=== PATIENT | male | born 1985 | race Caucasian/White ===

== ENCOUNTER 2023-11-11 18:43 | Inpatient (IN) | payer OTHER ==
--- NOTE | 2023-11-11 19:30 | ED ---
General Adult HPI - General Chief complaint: Seizure Stated complaint: Seizure Time Seen by Provider: 11/11/23 19:27 Source: patient Mode of arrival: ambulatory Limitations: no limitations - History of Present Illness Initial comments: 38 year old male sent from [place] secondary to seizure. Patient reports he was drinking a pint to a fifth of liquor on a daily basis. Last drink was approximately a week ago. Has been at [place] for the past week. Notes they recently stopped his medications and was sent here secondary to having two seizures. Reports that he was outside and started to feel like he was going to have a seizure and next thing he knows he fell backwards hitting his head on the back of the concrete. Unsure if there is LOC at this time. Patient been stood up and reportedly had another seizure however this time was guided down to the ground. Currently denies headache however notes some pain of his right shoulder and left hand. Does also note some anxiety and tremors as well. No other complaints at this time. - Related Data Allergies Allergy/AdvReac Type Severity Reaction Status Date / Time No Known Allergies Allergy Verified 11/11/23 19:08 Review of Systems ROS Statement: Those systems with pertinent positive or pertinent negative responses have been documented in the HPI. ROS Other: All systems not noted in ROS Statement are negative. Past Medical History Additional Past Surgical History / Comment(s): facial none surgery, PRK, Past Psychological History: Anxiety, Depression, PTSD Smoking Status: Current every day smoker, Vaper Past Alcohol Use History: Abuse, Daily, Heavy Past Drug Use History: None Reported General Exam - General Exam Comments Initial Comments: Visual Physical Exam Vital signs reviewed General: Well-appearing, nontoxic, no acute distress. Head: Normocephalic, atraumatic Eyes: PERRLA, EOMI ENT: Airway patent Chest: Nonlabored breathing Skin: No visual rash, normal skin tone Neuro: Alert and oriented 3 Musculoskeletal: No gross abnormalities Limitations: no limitations General appearance: alert, in no apparent distress Head exam: Present: other (No dang signs or raccoon's eyes.) Eye exam: Present: PERRL, EOMI ENT exam: Present: other (Some bite ribeiro on the tongue.) Neck exam: Present: normal inspection Respiratory exam: Present: normal lung sounds bilaterally Cardiovascular Exam: Present: regular rate GI/Abdominal exam: Present: soft Extremities exam: Present: other (Full active range of motion of the right shoulder. Strength and sensation intact of the distal bilateral upper extrem ities. Radial pulses intact. Hands are tremulous.) Neurological exam: Present: alert, oriented X3 Skin exam: Present: warm, dry Course Vital Signs 11/11/23 19:03 Temperature 98.6 F Pulse Rate 105 H Respiratory 18 Rate Blood Pressure 150/83 O2 Sat by Pulse 97 Oximetry Medical Decision Making - Medical Decision Making Was pt. sent in by a medical professional or institution (, PA, MANAGER WELLNESS, urgent care, hospital, or detention...) When possible be specific @ -No Did you speak to anyone other than the patient for history (EMS, parent, family, police, friend...)? What history was obtained from this source @ -No Did you review nursing and triage notes (agree or disagree)? Why? @ -I reviewed and agree with nursing and triage notes Were old charts reviewed (outside hosp., previous admission, EMS record, old EKG, old radiological studies, urgent care reports/EKG's, detention records)? Report findings @ -No old charts were reviewed Differential Diagnosis (chest pain, altered mental status, abdominal pain women, abdominal pain men, vaginal bleeding, weakness, fever, dyspnea, syncope, headache, dizziness, GI bleed, back pain, seizure, CVA, palpatations, mental health, musculoskeletal)? @ -Differential Seizure: Recurrent seizure disorder, febrile seizure, alcohol withdrawal, stimulants, meningitis, encephalitis, intercranial hemorrhage, intracranial tumor, stroke, eclampsia, thyrotoxicosis, hypocalcemia, hyponatremia, hypernatremia, hypomagnesemia, psychogenic, this is not meant to be an all-inclusive list. EKG interpreted by me (3pts min.). @ -EKG interpreted me which shows a acute ST or T wave changes 5 bpm. WY 198, QRS 83, QT/QTc 330/372. X-rays interpreted by me (1pt min.). @ -None done CT interpreted by me (1pt min.). @ -CT brain interpreted me which revealed no evidence of acute process. U/S interpreted by me (1pt. min.). @ -None done What testing was considered but not performed or refused? (CT, X-rays, U/S, labs)? Why? @ -None What meds were considered but not given or refused? Why? @ -None Did you discuss the management of the patient with other professionals (professionals i.e. , PA, MANAGER WELLNESS, lab, RT, psych nurse, psychiatric social worker supervisor, tram inspector, teacher, driver license reviewing officer, human services case manager)? Give summary @ -No Was smoking cessation discussed for >3mins.? @ -No Was critical care preformed (if so, how long)? @ -No Were there social determinants of health that impacted care today? How? (Homelessness, low income, unemployed, alcoholism, drug addiction, transportation, low edu. Level, literacy, decrease access to med. care, shelter, rehab)? @ -No Was there de-escalation of care discussed even if they declined (Discuss DNR or withdrawal of care, Hospice)? DNR status @ -No What co-morbidities impacted this encounter? (DM, HTN, Smoking, COPD, CAD, Cancer, CVA, ARF, Chemo, Hep., AIDS, mental health diagnosis, sleep apnea, morbid obesity)? @ -None Was patient admitted / discharged? Hospital course, mention meds given and route, prescriptions, significant lab abnormalities, going to OR and other pertinent info. @ -Admission I saw the patient initially as a quick note while in triage. 38-year-old male presenting from [place] secondary to seizure. Has been there for the last 7 days and had his medications discontinued today. Reportedly today while standing outside had a seizure from standing and hit the back of his head on the concrete. Following, stood up and reportedly had anoth er seizure soon after where he was guided to the ground which is why patient was brought here for further evaluation. Patient currently complains of some right shoulder pain and left wrist pain following the seizure however denies headache at this time. On exam full active range of motion and patient declined imaging studies. Laboratory studies reviewed. CBC unremarkable. Chemistry panel shows some transaminitis with elevated AST at 100, ALT at 224. Urine is pending at this time. Patient will be admitted secondary to seizure-like activity. Patient has had no further seizures while here in the ED. Undiagnosed new problem with uncertain prognosis? @ -No Drug Therapy requiring intensive monitoring for toxicity (Heparin, Nitro, Insulin, Cardizem)? @ -No Were any procedures done? @ -No Diagnosis/symptom? @ -Alcohol withdrawal, seizure-like activity Acute, or Chronic, or Acute on Chronic? @ -Acute Uncomplicated (without systemic symptoms) or Complicated (systemic symptoms)? @ -Complicated Side effects of treatment? @ -No Exacerbation, Progression, or Severe Exacerbation? @ -No Poses a threat to life or bodily function? How? (Chest pain, [place], [place], pneumonia, PE, COPD, DKA, ARF, appy, cholecystitis, CVA, Diverticulitis, Homicidal, Suicidal, threat to staff... and all critical care pts) @ -Possibly however at this time unlikely - Lab Data Result diagrams: 11/11/23 20:20 11/11/23 20:20 Lab Results 11/11/23 11/11/23 11/11/23 Range/Units 20:20 20:20 20:20 WBC 10.4 (3.8-10.6) k/uL RBC 4.42 (4.30-5.90) m/uL Hgb 14.5 (13.0-17.5) gm/dL Hct 43.2 (39.0-53.0) % MCV 97.5 (80.0-100.0) fL MCH 32.7 (25.0-35.0) pg MCHC 33.5 (31.0-37.0) g/dL RDW 13.0 (11.5-15.5) % Plt Count 258 (150-450) k/uL MPV 7.4 Neutrophils % 79 % Lymphocytes % 12 % Monocytes % 6 % Eosinophils % 1 % Basophils % 1 % Neutrophils # 8.2 H (1.3-7.7) k/uL Lymphocytes # 1.2 (1.0-4.8) k/uL Monocytes # 0.7 (0-1.0) k/uL Eosinophils # 0.1 (0-0.7) k/uL Basophils # 0.1 (0-0.2) k/uL Sodium 137 (137-145) mmol/L Potassium 4.0 (3.5-5.1) mmol/L Chloride 106 (98-107) mmol/L Carbon Dioxide 25 (22-30) mmol/L Anion Gap 6 mmol/L BUN 12 (9-20) mg/dL Creatinine 0.80 (0.66-1.25) mg/dL Est GFR (CKD-EPI)AfAm >90 (>60 ml/min/1.73 sqM) Est GFR (CKD-EPI)NonAf >90 (>60 ml/min/1.73 sqM) Glucose 98 (74-99) mg/dL Plasma Lactic Acid Jose M 1.6 (0.7-2.0) mmol/L Calcium 9.2 (8.4-10.2) mg/dL Total Bilirubin 0.7 (0.2-1.3) mg/dL AST 100 H (17-59) U/L ALT 224 H (4-49) U/L Alkaline Phosphatase 73 (38-126) U/L Total Protein 6.7 (6.3-8.2) g/dL Albumin 4.3 (3.5-5.0) g/dL Serum Alcohol <10 mg/dL Disposition Clinical Impression: Alcohol withdrawal, Observed seizure-like activity Disposition: ADMITTED IP TO THIS [facility] Condition: Good Referrals: Mayra Desai MD [STAFF PHYSICIAN] - 1-2 days Time of Disposition: 22:15
[2023-11-11] MEDS ORDERED: LORazepam 2 MG/ML INJ IV PRN ×3 (19:54)
[2023-11-11] MEDS: THIAMINE 100 MG/ML 2 ML VIAL IM STA (20:44)
[2023-11-11 20:57] LABS: Basophils # (A) 0.1 k/uL (0-0.2); Basophils % (A) 1 %; Eosinophils # (A) 0.1 k/uL (0-0.7); Eosinophils % (A) 1 %; HCT 43.2 % (39.0-53.0); HGB 14.5 gm/dL (13.0-17.5); Lymphocytes # (A) 1.2 k/uL (1.0-4.8); Lymphocytes % (A) 12 %; MCH 32.7 pg (25.0-35.0); MCHC 33.5 g/dL (31.0-37.0); MCV 97.5 fL (80.0-100.0); Mean Platelet Volume 7.4; Monocytes # (A) 0.7 k/uL (0-1.0); Monocytes % (A) 6 %; Neutrophils # (A) 8.2 k/uL (1.3-7.7); Neutrophils % (A) 79 %; Platelet Count 258 k/uL (150-450); RBC 4.42 m/uL (4.30-5.90); WBC 10.4 k/uL (3.8-10.6)
--- NOTE | 2023-11-11 21:51 | CT ---
EXAMINATION TYPE: CT brain wo con CT DLP: 1091.3 mGycm, Automated exposure control for dose reduction was used. DATE OF EXAM: 11/11/2023 9:30 PM COMPARISON: None. CLINICAL INDICATION:Male, 38 years old with history of seizure head injury, patient arrives from [facility] after a couple seizures, ETOH withdrawal. right arm, left hand, bilateral calf pain from fal l. neck soreness/aching in bilateral shoulders. TECHNIQUE: Brain: Axial CT images of the brain were obtained with coronal and sagittal reformats created and rev iewed. Contrast used: None. Oral contrast used: None. FINDINGS: Extra-axial spaces: No abnormal extra-axial fluid collections. Ventricular system: Ventricles appear dilated in proportion to the degree of cerebral atrophy. Cerebral parenchyma: No increased attenuation to suggest acute intraparenchymal hemorrhage. The gra y-white matter interface appears maintained. Mild generalized brain atrophy, seems excessive for age . White matter unremarkable by CT. Cerebellum: No acute abnormality. Mass effect: No evidence of mass effect or midline shift. Intracranial vasculature: Unremarkable Soft tissues: No acute or concerning abnormality. Visualized orbits: Orbital contents appear grossly intact. Calvarium/osseous structures: No evidence of calvarial fracture. Bowing deformity of the right medial orbital wall inward consistent with a remote injury. Mild nasal septal deviation. Paranasal sinuses and mastoid air cells: Clear. MRI is more sensitive for detecting acute processes such as infarct, and may be considered if clinica lly warranted. IMPRESSION: No acute intracranial CT abnormality.
[2023-11-11 21:52] LABS: ALT 224 U/L (4-49); AST 100 U/L (17-59); African American GFR (CKD) >90 (>60 ml/min/1.73 sqM); Albumin 4.3 g/dL (3.5-5.0); Alcohol <10 mg/dL; Alkaline Phosphatase 73 U/L (38-126); Anion Gap 6 mmol/L; Blood Urea Nitrogen 12 mg/dL (9-20); Calcium 9.2 mg/dL (8.4-10.2); Carbon Dioxide 25 mmol/L (22-30); Chloride 106 mmol/L (98-107); Glucose 98 mg/dL (74-99); Non-African American GFR(CKD) >90 (>60 ml/min/1.73 sqM); Sodium 137 mmol/L (137-145); Total Bilirubin 0.7 mg/dL (0.2-1.3); Total Protein 6.7 g/dL (6.3-8.2)
[2023-11-11] MEDS: ACETAMINOPHEN TAB 500 MG TAB PO STA (21:57)
[2023-11-11] MEDS: LORazepam 2 MG/ML INJ IV STA (21:58)
[2023-11-11] MEDS ORDERED: NALOXONE 0.4 MG/ML 1 ML VIAL IV PRN (22:51)
[2023-11-11] MEDS: SODIUM CHLORIDE 0.9% 1,000 ML IV SCH (23:35)
[2023-11-12 00:25] LABS: Appearance,Urine Clear (Clear); Bilirubin,Urine Negative (Negative); Blood,Urine Negative (Negative); Color,Urine Colorless; Glucose,Urine (UA) Negative (Negative); Ketones,Urine Negative (Negative); Leukocyte Esterase,Urine Trace (Negative); Nitrite,Urine Negative (Negative); PH, Urine 6.5 (5.0-8.0); Protein,Urine Negative (Negative); RBC,Urine 1 /hpf (0-5); Specific Gravity,Urine 1.011 (1.001-1.035); Squamous Epithelial Cell,Urine <1 /hpf (0-4); Urobilinogen,Urine <2.0 mg/dL (<2.0); WBC,Urine 7 /hpf (0-5)
[2023-11-12 00:39] LABS: Amphetamine Screen,Urine Not Detected (NotDetected); Barbiturate Screen,Urine Not Detected (NotDetected); Benzodiazepines Screen,Urine Detected (NotDetected); Cocaine Screen,Urine Not Detected (NotDetected); Methadone Screen, Urine Not Detected (NotDetected); Opiate Screen,Urine Not Detected (NotDetected); Oxycodone Screen, Urine Not Detected (NotDetected); Phencyclidine Screen,Urine Not Detected (NotDetected); Tricyclic Antidepressant,Urine Not Detected (NotDetected); Urn Cannabinoid Scrn Not Detected (NotDetected)
[2023-11-12] MEDS: ACETAMINOPHEN TAB 325 MG TAB PO PRN (01:02)
--- NOTE | 2023-11-12 07:41 | P.HPIM ---
History of Present Illness H&P Date: 11/12/23 HISTORY OF PRESENT ILLNESS: 38-year-old male with chronic history of alcoholism who drinks over a pint of alcohol every day was not [facility] for alcoholism, his last drink was over a week ago patient apparently had stopped his medication he was sent to the emergency department at [facility] because of 2 seizure activity had happen as tonic-clonic he was outside and start to feel that he is going down he fell backward hit his head on the back of the concrete this was kind of weakness also had another 1 where he felt he is having seizure and help her get him down to the floor he had an episode lasted for few minutes he developed to have significant pain in the right shoulder and hand he is quite a bit anxious had not have any history of seizure in the past and the only medical history had his alcoholism along with anxiety depression and PTSD. Patient was seen and evaluated In the emergency department laboratory value showed quite bit abnormal liver function test drug screen shows benzodiazepines only alcohol level less than 10 CBC and chemistry were normal. The patient had some lorazepam along with thiamine IV fluid hydration will be kept on DT protocol and will be admitted to the hospital see neurology initiate antiseizure medication at this point EEG will be done and hopefully patient be able to return to [facility] as soon as he is cleared with neurology. Patient apparently was from [facility] never had any primary care in town, and is taking BuSpar and Wellbutrin at home for depression and anxiety. Continue to have slight right shoulder pain which will be x-ray and probably will use ibuprofen or Motrin to help with shoulder unless there is any abnormality or fracture. REVIEW OF SYSTEMS: CONSTITUTIONAL: Well-developed no acute respiratory distress. Quite a bit anxious. EYES: No icterus sclerae, no conjunctivitis. EARS, NOSE, MOUTH, THROAT, and FACE: No sore throat, lymphadenopathy, carotid bruits or deformity. RESPIRATORY: No SOB cough or wheezes. CARDIOVASCULAR: No CP, Palpitation, PND, Orthopnea, or angina. GASTROINTESTINAL: No Abd pain, Nausea or vomiting, no Diarrhea or constipation, No GI Bleed, no distention or masses. GENITOURINARY: Negative for Hematuria or UTI, no kidney stones. INTEGUMENT/BREAST: Negative for any muscular injury with mild osteoarthritis.. HEMATOLOGIC/LYMPHATIC: Negative for bleed or purpura. MUSCULOSKELTAL: Slight shoulder and left hand pain. NEURLOGICAL: Quite a bit anxious with mild tremor had loss of consciousness with seizure activity no blurred vision. BEHAVIORAL/PSYCH: Anxiety mild tremor. ENDOCRINE: Negative. PHYSICAL EXAMINATION: General Appearance: Alert, cooperative, no distress, appears stated age. Neck HEENT: Supple, no lymphadenopathy, no thyroid enlargement, no carotid bruits. Lungs: Clear to auscultation without crackles or wheezes no rhonchi, no deformity. Chest Wall: Chest wall normal expansion with deep inspiration no tenderness and no deformity was found on exam, no costochondral pain or discomfort. Heart: Regular rate and rhythm, S1, S2 normal, no murmur, rub or gallop. Back: Symmetric, no curvature, ROM normal, no CVA tenderness. Abdomen: Soft, non-tender, bowel sounds active all four quadrants, no masses, no organomegaly. Extremities: Extremities normal, atraumatic, no cyanosis or edema. Pulses: 2+ and symmetric. Skin: Skin color, texture, tugor normal, no rashes or lesions. Neurologic: Alert oriented x3 cranial nerves II through XII intact, no motor deficit, no abnormal balance or gait. ASSESSMENT AND PLAN: _Seizure activity: Most likely withdrawal from alcohol without the proper management for withdrawal. Lorazepam at this point patient be seen neurology EEG to be done not quite sure whether he needs any antiseizure medication or not. _History of alcoholism: Patient will be on lorazepam every 2 hours as needed prophylaxis for delirium trauma and alcohol withdrawal, continue thiamine and folic acid continue hydration. _Right shoulder pain post fall from his seizure, x-ray of the shoulder to be done will use ibuprofen 400 mg up to 3 times a day as needed for _Severe abnormal liver function test: Mostly alcohol-related will watch his liver function test in the next few weeks. _Severe depression and PTSD he is not on any medication at home currently we will try the following methods to drugs in the morning to see if he was on any prescribed medication to be restarted patient will benefit probably from SSRI or SNRI. _Nicotine dependency: Patient is heavy smoker will continue on 40 mg of nicotine patch daily. _GI prophylaxis: Patient be on Pepcid 20 mg daily. _DVT prophylaxis: Knee-high ALFRED hose and early mobilization. CODE STATUS: Full code. Admit patient to observation status for 1-2 night stays. Past Medical History Additional Past Medical History / Comment(s): ETOH FIFTH TO PINT DAILY ,BACK MOLAR REMOVED History of Any Multi-Drug Resistant Organisms: None Reported Additional Past Surgical History / Comment(s): facial nose surgery, PRK (eye surgery), Past Psychological History: Anxiety, Depression, PTSD Smoking Status: Current every day smoker, Vaper Past Alcohol Use History: Abuse, Daily, Heavy Past Drug Use History: None Reported Medications and Allergies Home Medications Medication Instructions Recorded Confirmed Type Acetaminophen [Tylenol] 650 mg PO Q4H PRN 11/12/23 11/12/23 History Calcium/Magnesium/Zinc/Vitamin D 1 tab PO TID PRN 11/12/23 11/12/23 History Chlorpheniramine Maleate 4 mg PO Q4H PRN 11/12/23 11/12/23 History [Chlor-Trimeton] Ibuprofen [Motrin Ib] 600 mg PO Q6H PRN 11/12/23 11/12/23 History Loperamide HCl [Imodium A-D] 4 mg PO QID PRN 11/12/23 11/12/23 History Mag Hydrox/Aluminum Hyd/Simeth 30 ml PO Q4H PRN 11/12/23 11/12/23 History [Mylanta Maximum Strength Liq] Melatonin 10 mg PO HS 11/12/23 11/12/23 History Multivitamins, Thera [Multivitamin 1 tab PO DAILY 11/12/23 11/12/23 History (formulary)] Nicotine 21Mg/24Hr Patch [Habitrol] 1 patch TRANSDERM DAILY 11/12/23 11/12/23 History Ofloxacin [Ofloxacin Ophth Soln] 1 drop BOTH EYES QID 11/12/23 11/12/23 History Thiamine [Vitamin B-1] 100 mg PO DAILY 11/12/23 11/12/23 History buPROPion HCL [buPROPion HCL Xl] 150 mg PO DAILY 11/12/23 11/12/23 History busPIRone HCL 5 mg PO BID 11/12/23 11/12/23 History cloNIDine HCL [Catapres] 0.1 - 0.3 mg PO Q4H PRN 11/12/23 11/12/23 History ondansetron HCL [Ondansetron HCl] 8 mg PO Q6H PRN 11/12/23 11/12/23 History Allergies Allergy/AdvReac Type Severity Reaction Status Date / Time No Known Allergies Allergy Verified 11/12/23 07:20 Physical Exam Vitals: Vital Signs Temp Pulse Pulse Resp BP BP Pulse Ox 11/12/23 02:00 97.7 F 83 16 149/90 97 11/12/23 01:14 18 11/11/23 19:03 98.6 F 105 H 18 150/83 97 Intake and Output 11/11/23 11/11/23 11/12/23 14:59 22:59 06:59 Other: Weight 74.843 kg 74.843 kg Results CBC & Chem 7: 11/11/23 20:20 11/11/23 20:20 Labs: Abnormal Lab Results - Last 24 Hours (Table) 11/11/23 11/11/23 11/11/23 Range/Units 20:20 20:20 23:37 Neutrophils # 8.2 H (1.3-7.7) k/uL AST 100 H (17-59) U/L ALT 224 H (4-49) U/L Ur Leukocyte Esterase Trace H (Negative) Urine WBC 7 H (0-5) /hpf U Benzodiazepines Scrn Detected H (NotDetected) Thrombosis Risk Factor Assmnt - Choose All That Apply Any of the Below Risk Factors Present?: Yes Each Factor Represents 1 point: Obesity (BMI >25) Other Risk Factors: No Other congenital or acquired thrombophilia - If yes, enter type in comment: No Thrombosis Risk Factor Assessment Total Risk Factor Score: 1 Thrombosis Risk Factor Assessment Level: Low Risk
[2023-11-12] MEDS: KETOROLAC 15 MG/ML 1 ML VIAL IVP PRN (08:20)
[2023-11-12] MEDS: busPIRone HCl 5 MG TAB PO SCH (08:20)
[2023-11-12] MEDS: NICOTINE 14MG/24HR PATCH TRANSDERM SCH (08:21)
[2023-11-12] MEDS: THIAMINE 100 MG TAB PO SCH (08:21)
[2023-11-12] MEDS: FAMOTIDINE 20 MG TAB PO SCH (08:21)
--- NOTE | 2023-11-12 08:38 | XR ---
EXAMINATION TYPE: XR shoulder complete RT DATE OF EXAM: 11/12/2023 COMPARISON: NONE HISTORY: Pain TECHNIQUE: Three views are submitted. FINDINGS: The osseous structures are intact. There is no acute fracture or dislocation. A calcification in th e soft tissue of the right axilla. Possibly vascular. Mild AC joint arthropathy. IMPRESSION: 1. Mild AC joint arthropathy. 2. Nonspecific calcification in the right axilla most likely vascular but could be correlated with ul trasound.
[2023-11-12] MEDS: buPROPion 75 MG TAB PO SCH (10:05)
[2023-11-12] MEDS: IBUPROFEN 600 MG TAB PO PRN (17:28)
--- NOTE | 2023-11-12 17:30 | P.CNNES ---
History of Present Illness Consult date: 11/12/23 Requesting physician: Taz Chaney Reason for Consult: seizure History of Present Illness: This is a 38-year-old gentleman with history of significant alcohol use who presents because of seizure-like activity at [facility]. Patient stated yesterday while at [facility] she was sitting and all of a sudden he had a sensation of traveling up his feet all the way to the shoulder that he felt his jaw twisting that has seizure-like activity. Unsure duration area and he stated when he got up he was told he had another seizure-like activity. He's having right shoulder pain. He states he is at [facility] because of his significant alcohol use. He drinks about a pint to assess and a day but he does not drink daily but most of the week. He also drapes. His last drink was about a week ago. At at the rehab center he was given Ativan then he was stopped Ativan on Friday. He stated that he was very tremulous at the rehab center. He denies any history of seizures in the past or any family history of seizures. He feels he is doing better. Regarding his history he stated it was normal. of note patient stated that he has a anxiety, depression, PTSD and the posterior on the Wellbutrin and Buspirone which he felt made him feel somewhat off. Some of the workup during his hospital visit consisted of: sodium is 137, calcium is 9.2, AST is 100 and ALT of 224. Plasma-lactic acid vein is 1.6. UDS: is positive for benzos. Otherwise the rest is on detected. Serum alcohol was less than 10 CT of the head is reported as no acute intracranial CT abnormality.I personally reviewed the CT and agree with the report. Review of Systems Review of system: The 12 point system was reviewed and apparent positive and negative per HPI. Past Medical History Additional Past Medical History / Comment(s): ETOH FIFTH TO PINT DAILY ,BACK MOLAR REMOVED History of Any Multi-Drug Resistant Organisms: None Reported Additional Past Surgical History / Comment(s): facial nose surgery, PRK (eye surgery), Past Psychological History: Anxiety, Depression, PTSD Smoking Status: Current every day smoker, Vaper Past Alcohol Use History: Abuse, Daily, Heavy Past Drug Use History: None Reported Medications and Allergies Home Medications Medication Instructions Recorded Confirmed Type Acetaminophen [Tylenol] 650 mg PO Q4H PRN 11/12/23 11/12/23 History Calcium/Magnesium/Zinc/Vitamin D 1 tab PO TID PRN 11/12/23 11/12/23 History Chlorpheniramine Maleate 4 mg PO Q4H PRN 11/12/23 11/12/23 History [Chlor-Trimeton] Ibuprofen [Motrin Ib] 600 mg PO Q6H PRN 11/12/23 11/12/23 History Loperamide HCl [Imodium A-D] 4 mg PO QID PRN 11/12/23 11/12/23 History Mag Hydrox/Aluminum Hyd/Simeth 30 ml PO Q4H PRN 11/12/23 11/12/23 History [Mylanta Maximum Strength Liq] Melatonin 10 mg PO HS 11/12/23 11/12/23 History Multivitamins, Thera [Multivitamin 1 tab PO DAILY 11/12/23 11/12/23 History (formulary)] Nicotine 21Mg/24Hr Patch [Habitrol] 1 patch TRANSDERM DAILY 11/12/23 11/12/23 History Ofloxacin [Ofloxacin Ophth Soln] 1 drop BOTH EYES QID 11/12/23 11/12/23 History Thiamine [Vitamin B-1] 100 mg PO DAILY 11/12/23 11/12/23 History buPROPion HCL [buPROPion HCL Xl] 150 mg PO DAILY 11/12/23 11/12/23 History busPIRone HCL 5 mg PO BID 11/12/23 11/12/23 History cloNIDine HCL [Catapres] 0.1 - 0.3 mg PO Q4H PRN 11/12/23 11/12/23 History ondansetron HCL [Ondansetron HCl] 8 mg PO Q6H PRN 11/12/23 11/12/23 History Allergies Allergy/AdvReac Type Severity Reaction Status Date / Time No Known Allergies Allergy Verified 11/12/23 07:20 Physical Examination - Vital Signs Vital Signs: Vital Signs Temp Pulse Pulse Resp BP BP Pulse Ox 11/12/23 14:01 98.4 F 79 17 149/86 98 11/12/23 07:00 97.6 F 89 18 134/86 98 11/12/23 02:00 97.7 F 83 16 149/90 97 11/12/23 01:14 18 11/11/23 19:03 98.6 F 105 H 18 150/83 97 Intake and Output 11/12/23 11/12/23 11/12/23 06:59 14:59 22:59 Intake Total 920 Balance 920 Intake: Oral 920 Other: # Voids 1 2 Weight 74.843 kg GENERAL: The patient is lying in bed and is not in acute distress. NEUROLOGICAL: Higher mental function: The patient is awake, alert, oriented to self, place and time. Patient is following commands. No aphasia and no neglect. Cranial nerves: The pupils are round, equal and reactive to light and ac commodation. Visual nicolas are full to confrontation throughout. Extraocular movement is intact no nystagmus is noted. Facial sensation is normal to touch throughout. The facial strength is normal throughout. Hearing is normal bilaterally to hand rub. Tongue is midline and moved [id number] without any difficulty. No dysarthria is noted. Shoulder shrug is normal bilaterally. Motor: The strength is limited in uppers because of shoulder pain but has at least 4+. while lowers are5 over 5 throughout. Normal tone and bulk. Is somewhat tremulous. Cerebellum: Normal finger to nose heel to chin bilaterally. Sensation: Sensation is normal to touch throughout. Reflexes (right/left): 2+ throughout.. Plantars are downgoing bilaterally. Results - Laboratory Findings CBC and BMP: 11/11/23 20:20 11/11/23 20:20 Abnormal Lab Findings: Abnormal Labs 11/11/23 11/11/23 11/11/23 20:20 20:20 23:37 Neutrophils # 8.2 H AST 100 H ALT 224 H Ur Leukocyte Esterase Trace H Urine WBC 7 H U Benzodiazepines Scrn Detected H Assessment and Plan Assessment: This is a 38-year-old gentleman with history of heavy alcohol use who was sent from rehab center because of seizure. His last drink was a week ago and he was stopped Ativan this Friday. seizure seems provoked due to alcohol withdrawal as well as due to medications cessation (Ativan) Heavy alcohol use PTSD Anxiety Depression Plan: routine EEG is ordered and is pending. I will not start patient on antiepileptic drugs since the episode was provoked. Seizure precautions seizure pads Patient stated that he is on Wellbutrin and Buspirone and feel off with those medication and those medication can lower seizure threshold. Recommend psychiatry consultation for medication modification. Patient is on thiamine 100mg daily. Will defer CIWA protocol to primary team. Upon discharge, recommend the patient to follow-up with neurologist as outpatient within 1-2 weeks. Will defer the rest of medical management to primary team. The plan is discussed with patient and his nurse. Thank you for the consultation. Time with Patient: Greater than 30
--- NOTE | 2023-11-12 21:03 | EEG ---
ELECTROENCEPHALOGRAM REPORT CLINICAL HISTORY: This is a 38-year-old gentleman with history of alcohol use, who was sent from [place] for seizure. The EEG is performed to obtain seizure and epileptiform discharge. RELEVANT MEDICATION: Ativan. EEG TYPE: This is a routine 21-channel EEG with video using the 10/20 electrode placement system. DESCRIPTION: Wakefulness is only obtained. During awake state, the posterior-dominant rhythm consists of [id number] voltage of 10.5 to 11 hertz activity. There is no physiological stage 2 sleep architecture. There is no focal slowing. There is diffuse excessive beta activity. Interictal and ictal, there are rare spike and slow waves over the left temporal-central region and it feels more temporo-parietal. There is no seizure noted during the study. ACTIVATION PROCEDURE: Photic stimulation did evoke a posterior driving response. There is no abnormality during the photic stimulation. Hyperventilation is not performed. CLINICAL INTERPRETATION: This is an abnormal routine EEG. There are rare epileptiform discharges over the left temporal-central region that feels more temporo-parietal that increase risk for seizures. Also there is excessive beta activity is likely due to medication effect (Ativan). There is no seizure noted during the study and there is no focal slowing. Clinical correlation is recommended. MMODL / IJN: [id number] / MTDVictor Manuel
[2023-11-13] MEDS ORDERED: levETIRAcetam IV 1,000 MG in SODIUM CHLORIDE 0.9% 250 ML IVPB ONE (00:08)
[2023-11-13] MEDS: levETIRAcetam IV 500 MG/5 ML VIAL IVP ONE (01:02)
--- NOTE | 2023-11-13 07:29 | P.PN ---
Subjective Progress Note Date: 11/13/23 HISTORY OF PRESENT ILLNESS: 38-year-old male with chronic history of alcoholism who drinks over a pint of alcohol every day was not [facility] for alcoholism, his last drink was over a week ago patient apparently had stopped his medication he was sent to the emergency department at [facility] because of 2 seizure activity had happen as tonic-clonic he was outside and start to feel that he is going down he fell backward hit his head on the back of the concrete this was kind of weakness also had another 1 where he felt he is having seizure and help her get him down to the floor he had an episode lasted for few minutes he developed to have significant pain in the right shoulder and hand he is quite a bit anxious had not have any history of seizure in the past and the only medical history had his alcoholism along with anxiety depression and PTSD. Patient was seen and evaluated In the emergency department laboratory value showed quite bit abnormal liver function test drug screen shows benzodiazepines only alcohol level less than 10 CBC and chemistry were normal. The patient had some lorazepam along with thiamine IV fluid hydration will be kept on DT protocol and will be admitted to the hospital see neurology initiate antiseizure medication at this point EEG will be done and hopefully patient be able to return to [facility] as soon as he is cleared with neurology. Patient apparently was from [facility] never had any primary care in [facility], and is taking BuSpar and Wellbutrin at home for depression and anxiety. Continue to have slight right shoulder pain which will be x-ray and probably will use ibuprofen or Motrin to help with shoulder unless there is any abnormality or fracture. 11/13/2023: To my surprise this EEG came back really positive patient was loaded with Keppra yesterday and initiated on Keppra 500 mg twice a day orally will discuss case with neurology again neurology expectation yesterday this is reactive to alcohol withdrawal they agree can be provoked by that purpose but with the EEG being positive and having a history of tach patient probably should be on antiseizure medication but should not be driving for the next 6 months "initiate antiseizure medication if agreed by neurology probably can return to [place] as early as today. Patient is seeing psychiatry today. Before changing medication, also repeat liver function test for comparison will go to rehab early. Patient was seen by psych today decided to stop his Wellbutrin and BuSpar and to switch him to duloxetine along with Vistaril and trazodone. Still waiting to see Dr. Pena neurology the patient be discharged today to [facility] hopefully with antiseizure medication plus the change in his antidepression. Patient will need follow-up with neurology as an outpatient in the next 2 to 3 weeks. REVIEW OF SYSTEMS: CONSTITUTIONAL: Well-developed no acute respiratory distress. Quite a bit anxious. EYES: No icterus sclerae, no conjunctivitis. EARS, NOSE, MOUTH, THROAT, and FACE: No sore throat, lymphadenopathy, carotid bruits or deformity. RESPIRATORY: No SOB cough or wheezes. CARDIOVASCULAR: No CP, Palpitation, PND, Orthopnea, or angina. GASTROINTESTINAL: No Abd pain, Nausea or vomiting, no Diarrhea or constipation, No GI Bleed, no distention or masses. GENITOURINARY: Negative for Hematuria or UTI, no kidney stones. INTEGUMENT/BREAST: Negative for any muscular injury with mild osteoarthritis.. HEMATOLOGIC/LYMPHATIC: Negative for bleed or purpura. MUSCULOSKELTAL: Slight shoulder and left hand pain. NEURLOGICAL: Quite a bit anxious with mild tremor had loss of consciousness with seizure activity no blurred vision. BEHAVIORAL/PSYCH: Anxiety mild tremor. ENDOCRINE: Negative. PHYSICAL EXAMINATION: General Appearance: Alert, cooperative, no distress, appears stated age. Neck HEENT: Supple, no lymphadenopathy, no thyroid enlargement, no carotid bruits. Lungs: Clear to auscultation without crackles or wheezes no rhonchi, no deformit y. Chest Wall: Chest wall normal expansion with deep inspiration no tenderness and no deformity was found on exam, no costochondral pain or discomfort. Heart: Regular rate and rhythm, S1, S2 normal, no murmur, rub or gallop. Back: Symmetric, no curvature, ROM normal, no CVA tenderness. Abdomen: Soft, non-tender, bowel sounds active all four quadrants, no masses, no organomegaly. Extremities: Extremities normal, atraumatic, no cyanosis or edema. Pulses: 2+ and symmetric. Skin: Skin color, texture, tugor normal, no rashes or lesions. Neurologic: Alert oriented x3 cranial nerves II through XII intact, no motor deficit, no abnormal balance or gait. ASSESSMENT AND PLAN: _Seizure activity: With positive EEG despite the suspicion this could be provoked by alcohol withdrawal patient has abnormality with his EEG consistent with seizure activity will be on Keppra for now and continue to follow with neurology for seizure. _History of alcoholism: Patient will be on lorazepam every 2 hours as needed prophylaxis for delirium trauma and alcohol withdrawal, continue thiamine and folic acid continue hydration. If stable can return probably to [facility] as early as today. _Right shoulder pain post fall from his seizure, x-ray of the shoulder to be done will use ibuprofen 400 mg up to 3 times a day as needed for. Negative finding or radiology continue anti-inflammatory agent. _Severe abnormal liver function test: Mostly alcohol-related we will repeat liver function test today. _Severe depression and PTSD he is not on any medication at home currently we marisela l try the following methods to drugs in the morning to see if he was on any prescribed medication to be restarted patient will benefit probably from SSRI or SNRI. _Nicotine dependency: Patient is heavy smoker will continue on 14 mg of nicotine patch daily. _GI prophylaxis: Patient be on Pepcid 20 mg daily. Discharge planning: If social work able to have patient return to [facility], can be discharged today. Hospital course: Patient was admitted for 2 seizure had happened and [facility] initially suspected to be related to withdrawal from alcohol. His EEG came back positive for epileptic waves in the temporal area patient was loaded with Keppra 1000 mg x 1 then started on 500 mg orally twice a day will be continue on for now. Patient also seen neurology agree with the current management also seen psych who changed his antidepression from Wellbutrin and BuSpar to trazodone, duloxe aaron and Vistaril. His medication were reviewed today and patient be discharged back to [facility] in the afternoon today November 13, 2023. Objective - Vital Signs Vital signs: Vital Signs Temp 97.6 F 11/13/23 01:44 Pulse 94 11/13/23 01:58 Resp 16 11/13/23 01:58 BP 122/54 11/13/23 01:44 Pulse Ox 97 11/13/23 01:44 FiO2 Intake & Output 11/12/23 11/12/23 11/13/23 06:59 18:59 06:59 Intake Total 920 Balance 920 Weight 74.843 kg Intake: Oral 920 Other: Voiding Method Toilet # Voids 1 2 1 - Labs CBC & Chem 7: 11/13/23 08:25 11/13/23 08:25
[2023-11-13 08:34] LABS: Basophils # (A) 0.1 k/uL (0-0.2); Basophils % (A) 1 %; Eosinophils # (A) 0.1 k/uL (0-0.7); Eosinophils % (A) 2 %; HCT 41.7 % (39.0-53.0); HGB 13.9 gm/dL (13.0-17.5); Lymphocytes # (A) 1.4 k/uL (1.0-4.8); Lymphocytes % (A) 26 %; MCH 33.4 pg (25.0-35.0); MCHC 33.3 g/dL (31.0-37.0); MCV 100.4 fL (80.0-100.0); Mean Platelet Volume 8.1; Monocytes # (A) 0.3 k/uL (0-1.0); Monocytes % (A) 6 %; Neutrophils # (A) 3.4 k/uL (1.3-7.7); Neutrophils % (A) 63 %; Platelet Count 226 k/uL (150-450); RBC 4.16 m/uL (4.30-5.90); RDW 12.7 % (11.5-15.5); WBC 5.4 k/uL (3.8-10.6)
[2023-11-13] MEDS: levETIRAcetam 500 MG TAB PO SCH (08:47)
[2023-11-13 08:58] LABS: ALT 158 U/L (4-49); AST 57 U/L (17-59); African American GFR (CKD) >90 (>60 ml/min/1.73 sqM); Albumin 3.7 g/dL (3.5-5.0); Albumin/Globulin Ratio 1.5; Alkaline Phosphatase 60 U/L (38-126); Anion Gap 7 mmol/L; Blood Urea Nitrogen 9 mg/dL (9-20); Calcium 8.4 mg/dL (8.4-10.2); Carbon Dioxide 26 mmol/L (22-30); Chloride 109 mmol/L (98-107); Globulin 2.4 g/dL; Glucose 93 mg/dL (74-99); Non-African American GFR(CKD) >90 (>60 ml/min/1.73 sqM); Potassium 3.6 mmol/L (3.5-5.1); Sodium 142 mmol/L (137-145); Total Bilirubin 0.8 mg/dL (0.2-1.3); Total Protein 6.1 g/dL (6.3-8.2)
[2023-11-13] MEDS ORDERED: traZODone HCL 50 MG TAB PO PRN (11:52)
--- NOTE | 2023-11-13 11:58 | P.CN ---
Psychiatric Consult - . Consult date: 11/13/23 Consult:: 11/13/23 10:57 IDENTIFYING DATA: This patient is a 38-year-old male, he is a , currently lives with his parents and also an intermediate housing, he is single, has no kids. He is 10% service-connected through the [place]. REASON FOR REFERRAL: Psychiatry was consulted for "medication check" HISTORY OF PRESENT ILLNESS: The patient presented to the hospital on 11/10 as he was at [facility] for rehab and had a seizure. Patient apparently was drinking previous to that several days ago drinking over a pint of liquor a day. LFTs were elevated, blood alcohol level was negative on arrival. EEG did not show seizure activity, neurology has been following. Nurse denied any complaints at this time. Patient was seen in the room had his clothes on, agreeable to speak to documentation writer. He was fairly calm and cooperative. He spoke about having multiple seizures at [facility]. States that he was on Wellbutrin and also BuSpar and believes that he was making twitches when he took the BuSpar. He states that he wants to be off the medications. We spoke about other alternatives and he is agreeable to try a SNRI Cymbalta. Patient states that his depression is a bit more under control, denies any current anxiety but does state that he has a history of PTSD, occasional nightmares, has been sleeping for, appetite is fair. At this time patient denies any suicidal or homical ideations, intent or plan. Patient denies any auditory, visual hallucinations and denies any paranoia or delusions. Patients admits to using cigarettes daily, claims that he last had a drink of alcohol about 7 days ago before going to rehab. Denies any other recreational drug use. PAST PSYCHIATRIC HISTORY: Patient has a a history of PTSD, anxiety and depression. Patient was previously on Wellbutrin and BuSpar. Patient denies any previous psychiatric hospitalizations. Claims that he used to follow-up with a psychiatrist at the [facility]. Patient denies any history of suicide attempts in the past. Additional Past Surgical History / Comment(s): facial none surgery, PRK, Past Psychological History: Anxiety, Depression, PTSD Smoking Status: Current every day smoker, Vaper Past Alcohol Use History: Abuse, Daily, Heavy Past Drug Use History: None Reported ALLERGIES: as per EMR. CHEMICAL DEPENDENCY HISTORY: as per HPI. FAMILY PSYCHIATRIC/SUBSTANCE USE HISTORY: Denies SOCIAL HISTORY: Patient was born and raised in [facility] [place]. Claims that he completed high school and did 2 associates degrees. States that he is a , served in the [employer] from [id number]. He claims that he was in combat in [place]. Claims that he is single, currently living in intermediate housing and will also with his parents, he has no kids. Collect [facility] service connection. States that he went to [facility] and 2016 for a DUI and also domestic violence charges. MENTAL STATUS EXAM: General Appearance: Patient appears to be well-built, has a rodriguez, stated age is alert, pleasant, and cooperative. Patient appears to have fair hygiene and grooming wearing hospital gown with fair eye contact. Behavior: Patient is calmly lying in bed without any agitated behavior. Attempts to cooperate. Fairly pleasant. Speech: Patient's speech is fluent and nonpressured. Rambles at times Mood/Affect: Patient reports their mood is "better now", affect is congruent Suicidality/Homicidality: Patient denies having any suicidal or homicidal ideation intent or plan. Perceptions: Patient denies any visual hallucinations and denies any auditory hallucinations Though content/process: There is no evidence of any delusional thought content and thought process is linear and goal-directed. Rambles at times. Focused on medications. Memory and concentration: AOX3, grossly intact for the purposes of this session. Can spell "WORLD" backwards Judgment and insight: Fair IMPRESSIONS: History of PTSD History of depressive disorder Seizure Nicotine dependence Alcohol use disorder PLAN: -At this time patient DOES NOT meet criteria for inpatient psychiatric admission. -Would recommend the following medication changes/additions: Discontinue BuSpar and Wellbutrin due to elevated risk of seizures. Patient was agreeable to try Cymbalta 30 mg daily for mood/anxiety/pain. Vistaril 50 mg twice daily as needed for anxiety. Trazodone 50 mg nightly as needed for insomnia. -bull wheel worker to provide patient with outpatient mental health/psychiatry resources for appropriate follow up upon discharge -Crew Scheduler spoke with patient about substance abuse and the harmful effects on medical and mental health, patient verbally understood and agreed. -bull wheel worker to provide patient substance use treatment resources including AA/NA meetings in the community. -bull wheel worker to provide patient with access line number to call for inpatient substance rehab -Communicated plan to patient's nurse -Psychiatry will sign off at this time -Please contact with any questions. 11/13/23 10:58 11/13/23 11:53
[2023-11-13] MEDS: hydrOXYzine pamoate 25 MG CAP PO PRN (13:21)
[2023-11-13] MEDS: DULoxetine HCL 30 MG CAPSULE.DR PO SCH (13:21)
--- NOTE | 2023-11-13 13:26 | P.DS ---
Providers Date of admission: 11/11/23 22:36 Attending physician: Taz Chaney Consults: 11/12/23 05:55 Consult Physician Routine Consulting Provider: Chuy Pena Consult Reason/Comments: SZ Do you want consulting provider notified?: Yes 11/12/23 17:17 Consult Physician Routine Consulting Provider: Abel Rivas Consult Reason/Comments: medication check Do you want consulting provider notified?: Yes Primary care physician: [facility] Hospital Course: HISTORY OF PRESENT ILLNESS: 38-year-old male with chronic history of alcoholism who drinks over a pint of a lcohol every day was not [facility] for alcoholism, his last drink was over a week ago patient apparently had stopped his medication he was sent to the emergency department at [facility] because of 2 seizure activity had happen as tonic-clonic he was outside and start to feel that he is going down he fell backward hit his head on the back of the concrete this was kind of weakness also had another 1 where he felt he is having seizure and help her get him down to the floor he had an episode lasted for few minutes he developed to have significant pain in the right shoulder and hand he is quite a bit anxious had not have any history of seizure in the past and the only medical history had his alcoholism along with anxiety depression and PTSD. Patient was seen and evaluated In the emergency department laboratory value showed quite bit abnormal liver function test drug screen shows benzodiazepines only alcohol level less than 10 CBC and chemistry were normal. The patient had some lorazepam along with thiamine IV fluid hydration will be kept on DT protocol and will be admitted to the hospital see neurology initiate antiseizure medication at this point EEG will be done and hopefully patient be able to return to [facility] as soon as he is cleared with neurology. Patient apparently was from [facility] never had any primary care in [facility], and is taking BuSpar and Wellbutrin at home for depression and anxiety. Continue to have slight right shoulder pain which will be x-ray and probably will use ibuprofen or Motrin to help with shoulder unless there is any abnormality or fracture. 11/13/2023: To my surprise this EEG came back really positive patient was loaded with Keppra yesterday and initiated on Keppra 500 mg twice a day orally will discuss case with neurology again neurology expectation yesterday this is reactive to alcohol withdrawal they agree can be provoked by that purpose but with the EEG being positive and having a history of tach patient probably should be on antiseizure medication but should not be driving for the next 6 months "initiate antiseizure medication if agreed by neurology probably can return to [place] as early as today. Patient is seeing psychiatry today. Before changing medication, also repeat liver function test for comparison will go to rehab early. Patient was seen by psych today decided to stop his Wellbutrin and BuSpar and to switch him to duloxetine along with Vistaril and trazodone. Still waiting to see Dr. Pena neurology the patient be discharged today to [facility] hopefully with antiseizure medication plus the change in his antidepression. After seeing neurology his antiseizure was changed to Vimpat from Keppra the patient will be discharged in 24 hours on Vimpat. Patient will need follow-up with neurology as an outpatient in the next 2 to 3 weeks. REVIEW OF SYSTEMS: CONSTITUTIONAL: Well-developed no acute respiratory distress. Quite a bit anxious. EYES: No icterus sclerae, no conjunctivitis. EARS, NOSE, MOUTH, THROAT, and FACE: No sore throat, lymphadenopathy, carotid bruits or deformity. RESPIRATORY: No SOB cough or wheezes. CARDIOVASCULAR: No CP, Palpitation, PND, Orthopnea, or angina. GASTROINTESTINAL: No Abd pain, Nausea or vomiting, no Diarrhea or constipation, No GI Bleed, no distention or masses. GENITOURINARY: Negative for Hematuria or UTI, no kidney stones. INTEGUMENT/BREAST: Negative for any muscular injury with mild osteoarthritis.. HEMATOLOGIC/LYMPHATIC: Negative for bleed or purpura. MUSCULOSKELTAL: Slight shoulder and left hand pain. NEURLOGICAL: Quite a bit anxious with mild tremor had loss of consciousness with seizure activity no blurred vision. BEHAVIORAL/PSYCH: Anxiety mild tremor. ENDOCRINE: Negative. PHYSICAL EXAMINATION: General Appearance: Alert, cooperative, no distress, appears stated age. Neck HEENT: Supple, no lymphadenopathy, no thyroid enlargement, no carotid bruits. Lungs: Clear to auscultation without crackles or wheezes no rhonchi, no deformity. Chest Wall: Chest wall normal expansion with deep inspiration no tenderness and no deformity was found on exam, no costochondral pain or discomfort. Heart: Regular rate and rhythm, S1, S2 normal, no murmur, rub or gallop. Back: Symmetric, no curvature, ROM normal, no CVA tenderness. Abdomen: Soft, non-tender, bowel sounds active all four quadrants, no masses, no organomegaly. Extremities: Extremities normal, atraumatic, no cyanosis or edema. Pulses: 2+ and symmetric. Skin: Skin color, texture, tugor normal, no rashes or lesions. Neurologic: Alert oriented x3 cranial nerves II through XII intact, no motor deficit, no abnormal balance or gait. ASSESSMENT AND PLAN: _Seizure activity: With positive EEG despite the suspicion this could be provoked by alcohol withdrawal patient has abnormality with his EEG consistent with seizure activity will be on Keppra for now and continue to follow with neurology for seizure. _History of alcoholism: Patient will be on lorazepam every 2 hours as needed prophylaxis for delirium trauma and alcohol withdrawal, continue thiamine and folic acid continue hydration. If stable can return probably to [facility] as early as today. _Right shoulder pain post fall from his seizure, x-ray of the shoulder to be done will use ibuprofen 400 mg up to 3 times a day as needed for. Negative finding or radiology continue anti-inflammatory agent. _Severe abnormal liver function test: Mostly alcohol-related we will repeat liver function test today. _Severe depression and PTSD he is not on any medication at home currently we will try the following methods to drugs in the morning to see if he was on any prescribed medication to be restarted patient will benefit probably from SSRI or SNRI. _Nicotine dependency: Patient is heavy smoker will continue on 14 mg of nicotine patch daily. _GI prophylaxis: Patient be on Pepcid 20 mg daily. Discharge planning: If social work able to have patient return to [facility], can be discharged today. Hospital course: Patient was admitted for 2 seizure had happened and [facility] initially suspected to be related to withdrawal from alcohol. His EEG came back positive for epileptic waves in the temporal area patient was loaded with Keppra 1000 mg x 1 then started on 500 mg orally twice a day, on November 13, 2023 after seeing neurology patient refused to take Keppra claiming he was having more side effects from it apparently he was on it previously. Agreed to switch to Vimpat 50 mg twice a day prescription was sent to the pharmacy. Also patient was told by neurology to sustain from driving for the next 6 months. And to follow-up with the neurology as an outpatient. Patient also seen neurology agree with the current management also seen psych who changed his antidepression from Wellbutrin and BuSpar to trazodone, duloxetine and Vistaril. His medication were reviewed today and patient be discharged back to [facility] today November 14, 2023. time spend on Discharging patient was 32 minutes. Patient Condition at Discharge: Good Plan - Discharge Summary Discharge Rx Participant: No New Discharge Prescriptions: New DULoxetine HCL [Cymbalta] 30 mg PO DAILY #30 cap Nicotine 14Mg/24Hr Patch [Habitrol] 1 patch TRANSDERM DAILY #30 patch Famotidine [Pepcid] 20 mg PO DAILY #30 tab Lacosamide [Vimpat] 50 mg PO BID #60 tab traZODone HCL [Desyrel] 50 mg PO HS PRN #30 tab PRN Reason: Insomnia Acetaminophen Tab [Tylenol] 650 mg PO Q6HR PRN tab PRN Reason: Mild Pain Or Fever > 100.5 hydrOXYzine pamoate [Vistaril] 50 mg PO BID PRN #60 cap PRN Reason: Anxiety Continue Thiamine [Vitamin B-1] 100 mg PO DAILY Loperamide HCl [Imodium A-D] 4 mg PO QID PRN PRN Reason: Loose Stool Chlorpheniramine Maleate [Chlor-Trimeton] 4 mg PO Q4H PRN PRN Reason: Allergy Symptoms cloNIDine HCL [Catapres] 0.1 - 0.3 mg PO Q4H PRN PRN Reason: BP >160/100 Calcium/Magnesium/Zinc/Vitamin D 1 tab PO TID PRN PRN Reason: Cramping Ofloxacin [Ofloxacin Ophth Soln] 1 drop BOTH EYES QID ondansetron HCL [Zofran] 8 mg PO Q6H PRN PRN Reason: Nausea And Vomiting Mag Hydrox/Aluminum Hyd/Simeth [Mylanta Maximum Strength Liq] 30 ml PO Q4H PRN PRN Reason: Gi Upset Acetaminophen [Tylenol] 650 mg PO Q4H PRN PRN Reason: Fever And/ Or Pain Multivitamins, Thera [Multivitamin (formulary)] 1 tab PO DAILY Melatonin 10 mg PO HS Ibuprofen [Motrin Ib] 600 mg PO Q6H PRN PRN Reason: Fever And/ Or Pain Discontinued Nicotine 21Mg/24Hr Patch [Habitrol] 1 patch TRANSDERM DAILY busPIRone HCL 5 mg PO BID buPROPion HCL [buPROPion HCL Xl] 150 mg PO DAILY Discharge Medication List Acetaminophen [Tylenol] 650 mg PO Q4H PRN 11/12/23 [History] Calcium/Magnesium/Zinc/Vitamin D 1 tab PO TID PRN 11/12/23 [History] Chlorpheniramine Maleate [Chlor-Trimeton] 4 mg PO Q4H PRN 11/12/23 [History] Ibuprofen [Motrin Ib] 600 mg PO Q6H PRN 11/12/23 [History] Loperamide HCl [Imodium A-D] 4 mg PO QID PRN 11/12/23 [History] Mag Hydrox/Aluminum Hyd/Simeth [Mylanta Maximum Strength Liq] 30 ml PO Q4H PRN 11/12/23 [History] Melatonin 10 mg PO HS 11/12/23 [History] Multivitamins, Thera [Multivitamin (formulary)] 1 tab PO DAILY 11/12/23 [History] Ofloxacin [Ofloxacin Ophth Soln] 1 drop BOTH EYES QID 11/12/23 [History] Thiamine [Vitamin B-1] 100 mg PO DAILY 11/12/23 [History] cloNIDine HCL [Catapres] 0.1 - 0.3 mg PO Q4H PRN 11/12/23 [History] ondansetron HCL [Zofran] 8 mg PO Q6H PRN 11/12/23 [History] Acetaminophen Tab [Tylenol] 650 mg PO Q6HR PRN tab 11/13/23 [Rx] DULoxetine HCL [Cymbalta] 30 mg PO DAILY #30 cap 11/13/23 [Rx] Famotidine [Pepcid] 20 mg PO DAILY #30 tab 11/13/23 [Rx] Nicotine 14Mg/24Hr Patch [Habitrol] 1 patch TRANSDERM DAILY #30 patch 11/13/23 [Rx] hydrOXYzine pamoate [Vistaril] 50 mg PO BID PRN #60 cap 11/13/23 [Rx] traZODone HCL [Desyrel] 50 mg PO HS PRN #30 tab 11/13/23 [Rx] Lacosamide [Vimpat] 50 mg PO BID #60 tab 11/14/23 [Rx] Follow up Appointment(s)/Referral(s): Mayra Desai MD [STAFF PHYSICIAN] - 1-2 days Activity/Diet/Wound Care/Special Instructions: Please call [place] on d/c and they will pick patient up: #[phone]. Discharge/Stand Alone Forms: AA Meetings [facility], Who Do I Call?, Community Resources, Outpatient Counseling, In Substance Abuse Facilities, Personal [employer]ing [employer] Discharge Disposition: HOME SELF-CARE
--- NOTE | 2023-11-13 13:49 | P.PN ---
Subjective Progress Note Date: 11/13/23 I am following-up with patient and he states he had episodes where he did not drink for a few month but would have jerking episodes at night time or time to time that were rare. He stated he notified others in past about them and was told it was alcohol withdrawal. He does not recall having "full body jerks" in past. I notified him about the result of EEG and it seems the primary stated him on Keppra 500mg bid with loading 1gm and he stated he does not want to be on it because of side-effects of it. Objective - Vital Signs Vital signs: Vital Signs Temp 97.5 F L 11/13/23 07:00 Pulse 75 11/13/23 07:00 Resp 18 11/13/23 07:00 BP 139/86 11/13/23 07:00 Pulse Ox 98 11/13/23 07:00 FiO2 Intake & Output 11/12/23 11/13/23 11/13/23 18:59 06:59 18:59 Intake Total 920 118 Balance 920 118 Intake: Oral 920 118 Other: Voiding Method Toilet Toilet # Voids 2 2 - Exam GENERAL: The patient is lying in bed and is not in acute distress. NEUROLOGICAL: Higher mental function: The patient is awake, alert, oriented to self, place and time. Patient is following commands. No aphasia and no neglect. Cranial nerves: The pupils are round, equal and reactive to light and accommodation. Visual nicolas are full to confrontation throughout. Extraocular movement is intact no nystagmus is noted. Facial sensation is normal to touch throughout. The facial strength is normal throughout. Hearing is normal bilaterally to hand rub. Tongue is midline and moved [id number] without any difficulty. No dysarthria is noted. Shoulder shrug is normal bilaterally. Motor: The strength is limited in uppers because of shoulder pain but has at le ast 4+. while lowers are5 over 5 throughout. Normal tone and bulk. Is somewhat tremulous. Cerebellum: Normal finger to nose heel to chin bilaterally. Sensation: Sensation is normal to touch throughout. Reflexes (right/left): 2+ throughout.. Plantars are downgoing bilaterally. Some of the workup during his hospital visit consisted of: sodium is 137, calcium is 9.2, AST is 100 and ALT of 224. Plasma-lactic acid vein is 1.6. UDS: is positive for benzos. Otherwise the rest is on detected. Serum alcohol was less than 10 CT of the head is reported as no acute intracranial CT abnormality.I personally reviewed the CT and agree with the report. Routine EEG: Is abnormal. There are rare epileptiform discharges over the left temporal/central but seems more temporal/parietal region. The excessive beta activity is due to medication effect (Ativan). No seizure or focal slowing. - Labs CBC & Chem 7: 11/13/23 08:25 11/13/23 08:25 Labs: Abnormal Lab Results - Last 24 Hours (Table) 11/13/23 11/13/23 Range/Units 08:25 08:25 RBC 4.16 L (4.30-5.90) m/uL MCV 100.4 H (80.0-100.0) fL Chloride 109 H (98-107) mmol/L ALT 158 H (4-49) U/L Total Protein 6.1 L (6.3-8.2) g/dL Assessment and Plan Assessment: This is a 38-year-old gentleman with history of heavy alcohol use who was sent from rehab center because of seizure. His last drink was a week ago and he was stopped Ativan this Friday. Seizure seems provoked due to alcohol withdrawal as well as due to medications cessation (Ativan) and on EEG has epileptiform discharges over the left temporal/parietal region which can increase risk for seizures. History of rare body jerks in past even though he was off alcohol for a few month and likely patient has underlying focal seizures. Heavy alcohol use PTSD Anxiety Depression Plan: The primary started him on Keppra 500mg bid with loading dose of 1gm. The patient wanted the medication to be stopped because of side-effect of mood/irritability which he has tough time dealing on a daily basis. I started him on Vimpat 50mg bid instead. If patient cannot tolerate Vimpat then recommend Lamictal with goal of 100mg bid but it needs to be titrated slowly because of side-effects of Estuardo David Syndrome. Per [place] DMV, because of his seizures, to avoid driving for 6 months until no further seizure from last one. Avoid heights, swim unassisted or use heavy machinery. Pending MRI Brain seizure protocol. Seizure precautions seizure pads Patient stated that he is on Wellbutrin and Buspirone and feel off with those medication and those medication can lower seizure threshold. Psychiatry consulted for medication modification. Patient is on thiamine 100mg daily. Will defer CIWA protocol to primary team. Upon discharge, recommend the patient to follow-up with neurologist as outpatient within 1-2 weeks. Will defer the rest of medical management to primary team. The plan is discussed with patient and his nurse. Time with Patient: Less than 30
--- NOTE | 2023-11-13 16:49 | MR ---
PRE AND POSTCONTRAST ENHANCED MRI OF THE BRAIN: CLINICAL HISTORY: seizure CONTRAST: Gadavist 7.5ml Multiplanar and multispin-echo imaging of the brain was performed both before and after the administr ation of contrast. The ventricles, basal cisterns and sulci overlying the cerebral convexities are within normal limits. There is no evidence for midline shift or mass effect. Acute intracranial hemorrhage or extra-axial collection is not evident. There are no abnormal areas of increased or decreased signal intensity within the brain parenchyma. Following contrast administration, there is no evidence for pathologic enhancement or enhancing mass. The paranasal sinuses and mastoid air cells are well-aerated. IMPRESSION: Unremarkable pre and postcontrast enhanced MRI of the brain.
[2023-11-13] MEDS: LACOSAMIDE 50 MG TABLET PO SCH (20:30)
[2023-11-14 03:20] VITALS: PULSE 71; TEMP 98.6
[2023-11-14 07:59] VITALS: BP 151/84; RESP 18
== END 2023-11-14 12:53 | disposition home or self-care (01) | DRG 53 ==
LOC: EC 18:43 → 6NMEDSUR 22:36 → OBSVTOIN 22:36 → 6NMEDSUR 23:26
PROVIDERS: ADMIT Internal Medicine Geriatric Medicine; ATTEND Internal Medicine Geriatric Medicine
DX: G40.89 Other seizures (principal); E87.0 Hyperosmolality and hypernatremia; F10.239 Alcohol dependence with withdrawal, unspecified; F17.290 Nicotine dependence, other tobacco product, uncomplicated; F32.A Depression, unspecified; F43.10 Post-traumatic stress disorder, unspecified; Z79.899 Other long term (current) drug therapy; Z91.85 Personal history of military service; M25.511 Pain in right shoulder; W18.30XA Fall on same level, unspecified, initial encounter; R74.01 Elevation of levels of liver transaminase levels; Z28.310 Unvaccinated for COVID-19; Z28.21 Immunization not carried out because of patient refusal
CPT/HCPCS: 36415; 70450; 70553; 80053; 80306; 80320; 81001; 83605; 85025; 93005; 95816; 96372; 96374; 99285